=== PATIENT | female | born 1995 | race Caucasian/White ===

== ENCOUNTER 2017-01-26 09:41 | Emergency (ER) | payer OTHER ==
[~2017-01-26] VITALS: Ht 160 cm; Wt 66.0 kg
[2017-01-26 09:44] VITALS: BP 112/73; PULSE 91; RESP 15; TEMP 98.5; O2SAT 98
[2017-01-26] MEDS ORDERED: SODIUM CHLOR 0.9% 1000 ML INJ 1,000 ML IV SCH (09:49)
[2017-01-26 10:00] VITALS: BP 107/69; PULSE 90; RESP 16; O2SAT 100
[2017-01-26] MEDS ORDERED: ONDANSETRON HCL 4 MG/2 ML VIAL IVP ONE (10:00)
[2017-01-26] MEDS ORDERED: DOXY10TA PO (10:00)
[2017-01-26] MEDS ORDERED: ZOFR8TAB4 SL (10:00)
[2017-01-26] MEDS ORDERED: SODIUM CHLORIDE 0.9% FLUSH 10 ML FLUSH IV FLUSH PRN (10:00)
--- NOTE | 2017-01-26 10:01 | PD ---
HPI Chief Complaint: Related Problem Time Seen by Provider: 09:48 Travel History International Travel<30 days: No Contact w/Intl Traveler<30days: No Traveled to known affect area: No History of Present Illness HPI Patient is a 21-year-old female presents emergency department with complaint of nausea and vomiting. Patient states she is approximately 7 weeks based on LMP. States that she's been having issues with nausea and vomiting had to call in sick from work today prompting ER visit. With her previous she had issues with hyperemesis gravidarum and was not able to work as a result of frequent ER visits. Patient does not have any antiemetic at home. She denies any abdominal pain, vaginal bleeding or leakage of fluid. She has not had establish care with [facility] for this . PFSH Past Medical History Asthma: Yes Blood Disorders: No Cancer: No Cardiovascular Problems: No Endocrine: No Gastrointestinal Disorders: Yes (N/V FOR LAST SEVERAL WEEKS DUE TO ) Genitourinary: No Immune Disorder: No Implanted Vascular Access Dvce: No Musculoskeletal: No Neurologic: No Psychiatric: No Reproductive: No Respiratory: Yes Immunizations Current: Yes ?: LMP: 11/2016 : 1 Para: 0 Past Surgical History Other Surgery: No Social History Alcohol Use: No Tobacco Use: No Substance Use: No Allergies-Medications (Allergen,Severity, Reaction): Coded Allergies: Phenergan (Verified Allergy, Severe, akathisia, 01/26/17) Reglan (Verified Allergy, Severe, AKISTHISIA, 01/26/17) Reported Meds & Prescriptions Reported Meds & Active Scripts Active Diclegis (Doxylamine-Pyridoxine) 10-10 Mg Tab 1 Tab PO DIRECTED 2 tab po hs day 1 and 2. If symptoms persist, 1 tab in am and 2 tab hs day 3. If symptoms persist, 1 tab in am 1 tab in afternoon and 2 tab hs day 4. Zofran Odt (Ondansetron Odt) 8 Mg Tab 8 Mg SL Q8H PRN Review of Systems Except as stated in HPI: all other systems reviewed are Neg Physical Exam Narrative GENERAL: Well-appearing female in no acute distress SKIN: Focused skin assessment warm/dry. HEAD: Normocephalic. EYES: No scleral icterus. No injection or drainage. ENT: Mucous membranes pink and moist. NECK: Supple CARDIOVASCULAR: Regular rate and rhythm. RESPIRATORY: No accessory muscle use. GASTROINTESTINAL: Abdomen soft, non-tender, nondistended. MUSCULOSKELETAL: Normal gait NEUROLOGICAL: Awake and alert. Normal speech. PSYCHIATRIC: Appropriate mood and affect; insight and judgment normal. Data Data Last Documented VS Vital Signs Date Time Temp Pulse Resp B/P Pulse Ox O2 Delivery O2 Flow Rate FiO2 01/26/17 10:00 16 01/26/17 10:00 90 107/69 100 Room Air 01/26/17 09:44 98.5 Orders Iv Access Insert/Monitor (01/26/17 09:49) Ondansetron Inj (Zofran Inj) (01/26/17 10:00) Sodium Chlor 0.9% 1000 Ml Inj (Ns 1000 M (01/26/17 09:49) Sodium Chloride 0.9% Flush (Ns Flush) (01/26/17 10:00) MDM Medical Decision Making Medical Screen Exam Complete: Yes Emergency Medical Condition: Yes Medical Record Reviewed: Yes Differential Diagnosis 21-year-old female here with complaint of , nausea and vomiting. Differential includes associated nausea, hyperemesis gravidarum, dehydration, electrolyte abnormality, and less likely gastritis, pancreatitis or hepatobiliary pathology given lack of abdominal pain and benign abdominal exam. Narrative Course IV established, given 1 L normal saline bolus and 4 mg Zofran. After which time patient was able to tolerate oral challenge and will be discharged home with outpatient [facility] follow-up. Diagnosis Primary Impression: Nausea and vomiting during prior to 22 weeks gestation Referrals: [facility] Patient Instructions: General Instructions, Nausea and Vomiting in ( ED) Additional Instructions: Zofran and Diclegis as prescribed. Follow-up with [facility] to establish care for this . Med/Other Pt SpecificInfo: Prescription(s) given Scripts Doxylamine-Pyridoxine (Diclegis)10-10 Mg Tab1 Tab PO DIRECTED #90 2 tab po hs day 1 and 2. If symptoms persist, 1 tab in am and 2 tab hs day 3. If symptoms persist, 1 tab in am 1 tab in afternoon and 2 tab hs day 4. Prov:Annie Jimenez MD 01/26/17 Ondansetron Odt (Zofran Odt)8 Mg Tab8 Mg SL Q8H PRN (NAUSEA OR VOMITING) #20 TAB Ref 0 Prov:Annie Jimenez MD 01/26/17 Disposition: 01 DISCHARGE HOME Condition: Stable Annie Jimenez MD Jan 26, 2017 10:01
== END 2017-01-26 11:38 | disposition home or self-care (01) ==
LOC: NEPD 09:41
DX: O21.0 Mild hyperemesis gravidarum (principal); O99.511 Diseases of the respiratory system complicating pregnancy, first trimester; Z3A.01 Less than 8 weeks gestation of pregnancy; J45.909 Unspecified asthma, uncomplicated
CPT/HCPCS: 96361; 96374; 99283; J2405; J7030